=== PATIENT | male | born 1970 | race African-American/Black ===

== ENCOUNTER 2017-09-30 13:07 | Emergency (ER) | payer SELFPAY ==
--- NOTE | 2017-09-30 13:55 | ER Document Report ---
ED GI/ - General Chief Complaint: Testicular Swelling Stated Complaint: GROIN PAIN Time Seen by Provider: 09/30/17 13:51 Notes: The patient is a 47-year-old male, past medical history hypertension, NIDDM, generalized edema, presents with 3 days of foreskin and testicular swelling. Patient takes 20 mg Lasix daily. He denies shortness of breath (despite nursing note), chest pain, fevers, cough, difficulty urinating, dysuria, perineal pain, nausea, vomiting, diarrhea, constipation or hematuria. TRAVEL OUTSIDE OF THE [place] IN LAST 30 DAYS: No - Related Data Allergies/Adverse Reactions: lisinopril [Lisinopril] Allergy (Severe, Verified 02/25/15 15:15) angioedema morphine [Morphine] Allergy (Verified 02/25/15 15:15) terazosin [Terazosin] Allergy (Verified 02/25/15 15:15) acetaminophen [From Percocet] Adverse Reaction (Verified 02/25/15 15:15) Urticaria oxycodone HCl [From Percocet] Adverse Reaction (Verified 02/25/15 15:15) Urticaria Past Medical History - General Information source: Patient - Social History Smoking Status: Current Every Day Smoker Family History: Reviewed & Not Pertinent Patient has suicidal ideation: No Patient has homicidal ideation: No - Past Medical History Cardiac Medical History: Reports: Hx Hypercholesterolemia, Hx Hypertension Pulmonary Medical History: Reports: Hx Bronchitis Denies: Hx Tuberculosis Endocrine Medical History: Reports: Hx Diabetes Mellitus Type 2 Renal/ Medical History: Denies: Hx Peritoneal Dialysis Psychiatric Medical History: Reports: Hx Bipolar Disorder Review of Systems - Review of Systems Notes: REVIEW OF SYSTEMS: CONSTITUTIONAL: -fevers, -chills EENT: -eye pain, -difficulty swallowing, -nasal congestion CARDIOVASCULAR: -chest pain, -syncope. RESPIRATORY: -cough, -SOB GASTROINTESTINAL: -abdominal pain, -nausea, -vomiting, -diarrhea GENITOURINARY: +swelling of penis and testicles, -dysuria, -hematuria MUSCULOSKELETAL: -back pain, -neck pain SKIN: -rash or skin lesions. HEMATOLOGIC: -easy bruising or bleeding. LYMPHATIC: -swollen, enlarged glands. NEUROLOGICAL: -altered mental status or loss of consciousness, -headache, - neurologic symptoms PSYCHIATRIC: -anxiety, -depression. ALL OTHER SYSTEMS REVIEWED AND NEGATIVE. Physical Exam - Vital signs Vitals: Temp Pulse Resp BP Pulse Ox 97.9 F 94 20 140/89 H 95 09/30/17 15:46 09/30/17 15:46 09/30/17 15:46 09/30/17 15:46 09/30/17 15:46 - Notes Notes: PHYSICAL EXAMINATION: GENERAL: In no acute distress. HEAD: Atraumatic, normocephalic. EYES: Pupils equal round and reactive to light, extraocular movements intact, sclera anicteric, conjunctiva are normal. ENT: nares patent, oropharynx clear without exudates. Moist mucous membranes. NECK: Normal range of motion, supple without lymphadenopathy LUNGS: Breath sounds clear to auscultation bilaterally and equal. No wheezes rales or rhonchi. HEART: Regular rate and rhythm without murmurs ABDOMEN: Soft, nontender, normoactive bowel sounds. No guarding, no rebound. No masses appreciated. : Swelling of foreskin and testicles, no crepitus or erythema. No tenderness. EXTREMITIES: Normal range of motion, 2+ pitting edema in B/L legs. No cyanosis. NEUROLOGICAL: Cranial nerves grossly intact. Normal speech, normal gait. Normal sensory and motor exams. PSYCH: Normal mood, normal affect. SKIN: Warm, Dry, normal turgor, no rashes or lesions noted. Course - Re-evaluation Re-evalutation: Patient presents with generalized edema and anasarca, especially in his penis and testicles. Patient is able to ambulate and he is not in respiratory distress or hypoxic to suggest pulmonary edema. There is no erythema, crepitus , perineal/groin tenderness or fever to suggest Avery's gangrene. He takes 20 mg Lasix daily. Will check blood work and help diurese patient. Patient's proBNP is 3000 and potassium is 5.5. Instructed him to double his Lasix and f/u with his PMD. - Vital Signs Vital signs: Temp Pulse Resp BP Pulse Ox 97.9 F 94 20 140/89 H 95 09/30/17 15:46 09/30/17 15:46 09/30/17 15:46 09/30/17 15:46 09/30/17 15:46 - Laboratory Result Diagrams: 09/30/17 14:23 09/30/17 14:23 Laboratory results interpreted by me: 09/30/17 09/30/17 09/30/17 14:23 14:23 14:23 Hgb 10.9 L Hct 35.4 L MCV 64 L MCH 19.8 L MCHC 30.8 L RDW 20.5 H Lymphocytes % 12.7 L Monocytes % 18.0 H Potassium 5.5 H BUN 24 H Creatinine 1.29 H Total Bilirubin 1.6 H Direct Bilirubin 1.1 H AST 69 H NT-Pro-B Natriuret Pep 3990 H Discharge - Discharge Clinical Impression: Anasarca Condition: Stable Disposition: HOME, SELF-CARE Additional Instructions: You may increase her Lasix to 40 mg daily to help with the fluid in your penis and scrotum. Return to the ER if you are unable to urinate, you have difficulty breathing, fever, pain in your groin region or you have any other concerns. Edema, Peripheral You have swelling in your legs. This is called peripheral edema. It can be caused by "leaky capillaries," inflammation, disease of the leg veins, or excess salt and water in your body. Edema may be a sign of heart, kidney, or liver disease. A medical evaluation can determine if there is a serious underlying cause for your edema. Avoid prolonged standing. If you must sit for a long time, occasionally get up and walk around or elevate your legs. Support stockings can be helpful in limiting swelling. Often diuretic or water pills are used to remove excess salt and water from your body. Call the doctor or return if you develop increased swelling, pain, or redness, shortness of breath, chest pain, or any other significant change. Forms: Elevated Blood Pressure Referrals: [facility] [Outside] - Follow up as needed
[2017-09-30 14:50] LABS: ALANINE AMINOTRANSFERASE 44 U/L (21-72); ALBUMIN 3.5 g/dL (3.5-5.0); ALKALINE PHOSPHATASE 113 U/L (38-126); ANION GAP 12 (5-19); ASPARTATE AMINO TRANSFERASE 69 U/L (17-59); BILIRUBIN,DIRECT 1.1 mg/dL (0.0-0.4); BILIRUBIN,TOTAL 1.6 mg/dL (0.2-1.3); BLOOD UREA NITROGEN 24 mg/dL (7-20); CALCIUM 8.9 mg/dL (8.4-10.2); CARBON DIOXIDE 26 mmol/L (22-30); CHLORIDE 103 mmol/L (98-107); GLUCOSE 110 mg/dL (75-110); POTASSIUM 5.5 mmol/L (3.6-5.0); SODIUM 140.7 mmol/L (137-145); TOTAL PROTEIN 8.1 g/dL (6.3-8.2)
[2017-09-30 14:51] LABS: ABSOLUTE BASOPHILS # (AUTO) 0.1 10^3/uL (0.0-0.2); ABSOLUTE EOSINOPHILS # (AUTO) 0.1 10^3/uL (0.0-0.6); ABSOLUTE LYMPHOCYTES (AUTO) 0.7 10^3/uL (0.5-4.7); ABSOLUTE NEUT (AUTO) 3.6 10^3/uL (1.7-8.2); BASOPHILS % (AUTO) 1.1 % (0-2); EOSINOPHILS % (AUTO) 1.5 % (0-6); HEMATOCRIT 35.4 % (37.9-51.0); HEMOGLOBIN 10.9 g/dL (13.5-17.0); LYMPHOCYTES % (AUTO) 12.7 % (13-45); MEAN CORPUSCULAR HEMOGLOBIN 19.8 pg (27.0-33.4); MEAN CORPUSCULAR HGB CONC 30.8 g/dL (32.0-36.0); PLATELET COUNT 366 10^3/uL (150-450); RED BLOOD COUNT 5.53 10^6/uL (4.35-5.55); RED CELL DISTRIBUTION WIDTH 20.5 % (11.5-14.0); SEGMENTED NEUTROPHILS % (AUTO) 66.7 % (42-78); TOTAL CELLS COUNTED % (AUTO) 100 %; WHITE BLOOD COUNT 5.4 10^3/uL (4.0-10.5)
[2017-09-30] MEDS ORDERED: FUROSEMIDE INJ/PF 40 MG/4 ML SDV IV ONE (14:59)
[2017-09-30 15:19] LABS: ANISOCYTOSIS 2+; PLATELET COMMENT ADEQUATE
[2017-09-30 15:20] LABS: OVALOCYTES SLIGHT; POLYCHROMASIA SLIGHT; TARGET CELLS 2+
[2017-09-30 15:21] LABS: MEAN CORPUSCULAR VOLUME 64 fl (80-97)
[2017-09-30 16:02] VITALS: BP 140/89
[2017-10-01 12:36] LABS: PATH REVIEW PATHOLOGIST REVIEWED
== END 2017-09-30 17:08 | disposition home or self-care (01) ==
LOC: ER 13:07
DX: R60.1 Generalized edema (principal); N50.819 Testicular pain, unspecified; E11.9 Type 2 diabetes mellitus without complications; E78.00 Pure hypercholesterolemia, unspecified; I10 Essential (primary) hypertension; F17.200 Nicotine dependence, unspecified, uncomplicated; Z88.6 Allergy status to analgesic agent
CPT/HCPCS: 99284; 96374; 36415; 85025; 80053; 83880; J1940

== ENCOUNTER 2017-10-11 13:35 | Emergency (ER) | payer SELFPAY ==
[2017-10-11] MEDS ORDERED: FUROSEMIDE INJ/PF 40 MG/4 ML SDV IV ONE ×2 (14:23→18:30)
[2017-10-11 14:28] LABS: ALANINE AMINOTRANSFERASE 43 U/L (21-72); ALBUMIN 3.6 g/dL (3.5-5.0); ALKALINE PHOSPHATASE 131 U/L (38-126); ANION GAP 17 (5-19); ASPARTATE AMINO TRANSFERASE 59 U/L (17-59); BILIRUBIN,DIRECT 1.3 mg/dL (0.0-0.4); BILIRUBIN,TOTAL 1.9 mg/dL (0.2-1.3); BLOOD UREA NITROGEN 14 mg/dL (7-20); CARBON DIOXIDE 25 mmol/L (22-30); CHLORIDE 98 mmol/L (98-107); CREATINE KINASE 399 U/L (55-170); GLUCOSE 96 mg/dL (75-110); POTASSIUM 4.7 mmol/L (3.6-5.0); SODIUM 139.7 mmol/L (137-145); TOTAL PROTEIN 7.8 g/dL (6.3-8.2)
--- NOTE | 2017-10-11 14:29 | ER Document Report ---
ED General - General Mode of Arrival: Stretcher Information source: Patient TRAVEL OUTSIDE OF THE [place] IN LAST 30 DAYS: No - HPI Onset: Last week Onset/Duration: Gradual Quality of pain: Achy. denies: No pain, Burning, Cramping, Dull, Fullness, Pressure, Sharp, Stabbing, Throbbing, Other Severity: Moderate Pain Level: 3 Associated symptoms: None, Allergy/hay fever, Body/muscle aches, Chest pain, Chills, Nonproductive cough, Productive cough, Diarrhea, Drooling, Earache, Fever, Headache, Hoarseness, Hurts to breath, Leg swelling, Nausea, Vomiting, Rhinnorhea, Sinus pain/drainage, Shortness of breath, Slow to respond, Sore throat, Sweating, Weakness, Other Exacerbated by: denies: Denies, Supine, Sitting, Standing, Movement, Walking, Coughing, Deep breathing, Food, Other Relieved by: denies: Denies, Supine, Sitting, Standing, Remaining still, Antacids, Food, Other <CHRISTIAN MERCADO - Last Filed: 10/11/17 16:35> <RAMBO LOWRY - Last Filed: 10/11/17 17:48> <TEREAS BRASHER E - Last Filed: 10/12/17 01:01> - General Chief Complaint: Chest Pain Stated Complaint: CHEST PAIN Time Seen by Provider: 10/11/17 14:11 Notes: History of present illness-47 years old male with a history of chronic edema, morbid obesity, presents today with difficulty in breathing and swelling of the whole body including scrotum. It started gradually over the last 2 weeks. States he was not ambulating for 1-1/2 weeks. Denies any chest pain denies any fever chills productive cough. Denies any abdominal pain except having loose stools on and off. Denies any vomiting but had nausea on and off. REVIEW OF SYSTEMS: CONSTITUTIONAL : Denies fever, chills, or sweats. Denies recent illness. EENT: Denies eye, ear, throat, or mouth pain or symptoms. Denies nasal or sinus congestion or discharge. Denies throat, tongue, or mouth swelling or difficulty swallowing. CARDIOVASCULAR: Denies chest pain. Denies palpitations or racing or irregular heart beat. Denies ankle edema. RESPIRATORY: As per history of complain GASTROINTESTINAL: Denies abdominal pain or distention. Denies nausea, vomiting , or diarrhea. Denies blood in vomitus, stools, or per rectum. Denies black, tarry stools. Denies constipation. GENITOURINARY: Denies difficulty urinating, painful urination, burning, frequency, blood in urine, or discharge. MUSCULOSKELETAL: Denies back or neck pain or stiffness. Denies joint pain or swelling. SKIN: Denies rash, lesions or sores. HEMATOLOGIC : Denies easy bruising or bleeding. LYMPHATIC: Denies swollen, enlarged glands. NEUROLOGICAL: Denies confusion or altered mental status. Denies passing out or loss of consciousness. Denies dizziness or lightheadedness. Denies headache. Denies weakness or paralysis or loss of use of either side. Denies problems with gait or speech. Denies sensory loss, numbness, or tingling. Denies seizures. PSYCHIATRIC: Denies anxiety or stress. Denies depression, suicidal ideation, or homicidal ideation. ALL OTHER SYSTEMS REVIEWED AND NEGATIVE. Dictation was performed using [employer] voice recognition software PHYSICAL EXAMINATION: GENERAL: Anasarca HEAD: Atraumatic, normocephalic. EYES: Pupils equal round and reactive to light, extraocular movements intact, sclera anicteric, conjunctiva are normal. ENT: Nares patent, oropharynx clear without exudates. Moist mucous membranes. NECK: Normal range of motion, supple without lymphadenopathy LUNGS: Breath sounds clear to auscultation bilaterally and equal. No wheezes rales or rhonchi. It was very difficult exam could not hear very well. HEART: Regular rate and rhythm without murmurs difficult exam could not hear very clearly. The breath sounds ABDOMEN: Distended with diffuse edema. No guarding, no rebound. No masses appreciated. Musculoskeletal: Bilateral lower leg edema all the way to the thigh NEUROLOGICAL: Cranial nerves grossly intact. Normal speech, normal gait. Normal sensory, motor exams PSYCH: Normal mood, normal affect. SKIN: Erythematous almost throughout the whole body (CHRISTIAN MERCADO) - Related Data Allergies/Adverse Reactions: lisinopril [Lisinopril] Allergy (Severe, Verified 02/25/15 15:15) angioedema morphine [Morphine] Allergy (Verified 02/25/15 15:15) terazosin [Terazosin] Allergy (Verified 02/25/15 15:15) acetaminophen [From Percocet] Adverse Reaction (Verified 02/25/15 15:15) Urticaria oxycodone HCl [From Percocet] Adverse Reaction (Verified 02/25/15 15:15) Urticaria Past Medical History - General Information source: Patient - Social History Smoking Status: Unknown if Ever Smoked Cigarette use (# per day): No Chew tobacco use (# tins/day): No Frequency of alcohol use: Rare Drug Abuse: denies: None, Bath salts, Cocaine, Heroin, Marijuana, Methamphetamine, Prescription drugs, Other Lives with: Alone, Family, Parents, Spouse/Significant other, Friend, Grandparent(s), Guardian, Homeless, Correction, Other Family History: Reviewed & Not Pertinent Patient has suicidal ideation: No Patient has homicidal ideation: No - Past Medical History Cardiac Medical History: Reports: Hx Hypercholesterolemia, Hx Hypertension Pulmonary Medical History: Reports: Hx Bronchitis Denies: Hx Tuberculosis Endocrine Medical History: Reports: Hx Diabetes Mellitus Type 2 Renal/ Medical History: Denies: Hx Peritoneal Dialysis Psychiatric Medical History: Reports: Hx Bipolar Disorder <CHRISTIAN MERCADO - Last Filed: 10/11/17 16:35> Review of Systems - Review of Systems Constitutional: denies: No symptoms reported, See HPI, Chills, Diaphoresis, Fever, Malaise, Weakness, Other, Weight gain, Weight loss, Recent illness EENT: denies: No symptoms reported, See HPI, Eye pain, Eye discharge, Blurred vision, Tearing, Double vision, Ear pain, Ear discharge, Nose pain, Nose congestion, Nose discharge, Sinus pressure, Sinus discharge, Throat pain, Difficulty swallowing, Throat swelling, Mouth pain, Mouth swelling, Dental problem, Vertigo, Other Cardiovascular: See HPI Respiratory: See HPI Gastrointestinal: See HPI Genitourinary: See HPI. denies: No symptoms reported, Burning, Dysuria, Discharge, Frequency, Flank pain, Hematuria, Incontinence, Pain, Urgency, Retention, Other Male Genitourinary: See HPI Skin: See HPI Neurological/Psychological: denies: No symptoms reported, See HPI, Confusion, Dementia, Depression, Hallucinations, Anxiety, Homicidal ideation, Sensory change, Weakness, Gait changes, Loss of power, Paralysis, Seizure, Lost consciousness, Headaches, Speech impairment, Numbness, Suicidal ideation, Tingling, Tremor, Other <CHRISTIAN MERCADO - Last Filed: 10/11/17 16:35> Physical Exam <CHRISTIAN MERCADO - Last Filed: 10/11/17 16:35> <RAMBO LOWRY - Last Filed: 10/11/17 17:48> <TERESA BRASHER - Last Filed: 10/12/17 01:01> - Vital signs Vitals: Resp BP Pulse Ox 17 105/90 H 95 10/11/17 13:47 10/11/17 13:47 10/11/17 13:47 - Notes Notes: Dictated (CHRISTIAN MERCADO) Course - Laboratory Result Diagrams: 10/11/17 13:20 10/11/17 13:20 - Diagnostic Test Radiology reviewed: Reports reviewed - Chest x-ray reported by radiologist as cardiomegaly otherwise no new finding. - EKG Interpretation by Me EKG shows normal: Sinus rhythm, [place] - Normal axis Rate: Normal Rhythm: NSR - At the rate of 46 bpm normal axis no acute ST elevation ST depression T-wave inversion. Poor R waves in anterior leads. <CHRISTIAN MERCADO - Last Filed: 10/11/17 16:35> - Laboratory Result Diagrams: 10/11/17 13:20 10/11/17 13:20 <RAMBO LOWRY - Last Filed: 10/11/17 17:48> - Laboratory Result Diagrams: 10/11/17 13:20 10/11/17 13:20 <TERESA BRASHER - Last Filed: 10/12/17 01:01> - Re-evaluation Re-evalutation: 10/11/17 17:48 Patient signed out to me by . Patient had 2 runs of V. tach. He denies any associated symptoms. He is otherwise stable. Amiodarone 150 mg administered. (RAMBO LOWRY) 10/12/17 01:01 Transport in ED. Patient stable for transport. (TERESA BRASHER) - Vital Signs Vital signs: Temp Pulse Resp BP Pulse Ox 20 145/86 H 99 10/12/17 00:31 10/12/17 00:31 10/12/17 00:31 10/11/17 16:45 Case was discussed with [facility] cardiology as well as the hospitalist currently being admitted (CHRISTIAN MERCADO) - Laboratory Laboratory results interpreted by me: 10/11/17 10/11/17 13:20 13:20 Hgb 10.5 L Hct 33.3 L MCV 63 L MCH 19.8 L MCHC 31.7 L RDW 20.1 H Lymphocytes % 10.1 L Monocytes % 16.8 H Basophils % 2.4 H Total Bilirubin 1.9 H Direct Bilirubin 1.3 H Alkaline Phosphatase 131 H Creatine Kinase 399 H Discharge <CHRISTIAN MERCADO - Last Filed: 10/11/17 16:35> <RAMBO LOWRY E - Last Filed: 10/11/17 17:48> <TERESA BRASHER E - Last Filed: 10/12/17 01:01> - Discharge Clinical Impression: Anasarca, Cardiomegaly, Elevated troponin Condition: Fair Disposition: [facility] Referrals: KENISHA DEGROOT MD [Primary Care Provider] - Follow up as needed
[2017-10-11 14:33] LABS: ABSOLUTE BASOPHILS # (AUTO) 0.1 10^3/uL (0.0-0.2); ABSOLUTE EOSINOPHILS # (AUTO) 0.1 10^3/uL (0.0-0.6); ABSOLUTE LYMPHOCYTES (AUTO) 0.5 10^3/uL (0.5-4.7); ABSOLUTE MONOCYTES (AUTO) 0.8 10^3/uL (0.1-1.4); ABSOLUTE NEUT (AUTO) 3.3 10^3/uL (1.7-8.2); BASOPHILS % (AUTO) 2.4 % (0-2); EOSINOPHILS % (AUTO) 1.6 % (0-6); HEMATOCRIT 33.3 % (37.9-51.0); HEMOGLOBIN 10.5 g/dL (13.5-17.0); LYMPHOCYTES % (AUTO) 10.1 % (13-45); MEAN CORPUSCULAR HEMOGLOBIN 19.8 pg (27.0-33.4); MEAN CORPUSCULAR HGB CONC 31.7 g/dL (32.0-36.0); MEAN CORPUSCULAR VOLUME 63 fl (80-97); MONOCYTES % (AUTO) 16.8 % (3-13); PLATELET COUNT 284 10^3/uL (150-450); RED BLOOD COUNT 5.31 10^6/uL (4.35-5.55); RED CELL DISTRIBUTION WIDTH 20.1 % (11.5-14.0); SEGMENTED NEUTROPHILS % (AUTO) 69.1 % (42-78); TOTAL CELLS COUNTED % (AUTO) 100 %; WHITE BLOOD COUNT 4.8 10^3/uL (4.0-10.5)
--- NOTE | 2017-10-11 14:34 | RADIOLOGY REPORT (SQ) ---
EXAM DESCRIPTION: CHEST SINGLE VIEW COMPLETED DATE/TIME: 10/11/2017 2:26 pm REASON FOR STUDY: chest pain COMPARISON: 02/25/2015 NUMBER OF VIEWS: One view. TECHNIQUE: Single frontal radiographic view of the chest acquired. LIMITATIONS: Body habitus. Portable technique. FINDINGS: LUNGS AND PLEURA: No opacities, masses or pneumothorax. No pleural effusion. MEDIASTINUM AND HILAR STRUCTURES: No masses. Contour normal. HEART AND VASCULAR STRUCTURES: Heart enlarged without failure. Normal vasculature. BONES: No acute findings. HARDWARE: None in the chest. OTHER: No other significant finding. IMPRESSION: Cardiomegaly. No acute findings. TECHNICAL DOCUMENTATION: JOB ID: [id number] [employer]- All Rights Reserved Reading location - IP/workstation name: [email or web address]
[2017-10-11 14:40] LABS: CREATINE KINASE MB 2.08 ng/mL (<4.55)
[2017-10-11 14:52] LABS: BURR CELLS SLIGHT; HYPOCHROMASIA 1+; OVALOCYTES 1+; POIKILOCYTOSIS 2+
[2017-10-11 14:53] LABS: PLATELET COMMENT ADEQUATE; SCHISTOCYTES SLIGHT; TARGET CELLS 1+
[2017-10-11 15:09] LABS: TROPONIN I 0.123 ng/mL
[2017-10-11] MEDS ORDERED: AMIODARONE HCL 150 MG in DEXTROSE 5%-WATER 100 ML IV ONE (17:47)
--- NOTE | 2017-10-11 18:23 | EKG REPORT ---
SEVERITY:- ABNORMAL ECG - SINUS TACHYCARDIA LOW VOLTAGE IN FRONTAL LEADS CONSIDER ANTEROSEPTAL INFARCT BORDERLINE T WAVE ABNORMALITIES : Confirmed by: Fareed Lawrence MD 11-Oct-2017 18:22:20
[2017-10-11] MEDS ORDERED: AMIODARONE HCL INJ 150 MG/3 ML VIAL IV ONE (18:34)
[2017-10-12 00:48] VITALS: BP 145/86
--- NOTE | 2017-10-14 13:00 | EKG REPORT ---
SEVERITY:- ABNORMAL ECG - SINUS RHYTHM LOW VOLTAGE IN FRONTAL LEADS CONSIDER ANTEROSEPTAL INFARCT BORDERLINE T WAVE ABNORMALITIES BORDERLINE PROLONGED QT INTERVAL : Confirmed by: Elva Quan 14-Oct-2017 12:59:16
== END 2017-10-12 01:17 | disposition short-term general hospital (02) ==
LOC: ER 13:35
DX: R60.1 Generalized edema (principal); I51.7 Cardiomegaly; R79.89 Other specified abnormal findings of blood chemistry; R07.9 Chest pain, unspecified; R06.00 Dyspnea, unspecified; E66.01 Morbid (severe) obesity due to excess calories; I10 Essential (primary) hypertension; E78.00 Pure hypercholesterolemia, unspecified; E11.9 Type 2 diabetes mellitus without complications; Z88.6 Allergy status to analgesic agent
CPT/HCPCS: 93005; 99285; 51702; 96374; 96375; 36415; 82553; 82962; 82550; 85025; 80053; 84484; 71045; 93010; 36600; J1940; J0282

== ENCOUNTER → 2018-07-10 | Outpatient (CLI) | payer MEDICAID ==
--- NOTE | 2018-07-10 16:00 | RADIOLOGY REPORT (SQ) ---
EXAM DESCRIPTION: U/S RETROPERITON (RENAL/AORTA) COMPLETED DATE/TIME: 07/10/2018 3:18 pm REASON FOR STUDY: N18.3 CHRONIC KIDNEY DISEASE, STAGE 3 (MODERATE) N18.3 CHRONIC KIDNEY DISEASE, ST AGE 4 (MODERATE) COMPARISON: None. TECHNIQUE: Dynamic and static grayscale images acquired of the kidneys and bladder and recorded on P ACS. Additional selected color Doppler and spectral images recorded. LIMITATIONS: None. FINDINGS: RIGHT KIDNEY: Normal size, 10.3 cm. Normal echogenicity. No solid or suspicious masses. No hydronephrosis. No calcifications. LEFT KIDNEY: Normal size, 10.4 cm. Normal echogenicity. No solid or suspicious masses. No hydrone phrosis. No calcification. BLADDER: Not well filled. OTHER FINDINGS: No other significant finding. IMPRESSION: NORMAL RENAL AND BLADDER ULTRASOUND. TECHNICAL DOCUMENTATION: JOB ID: [id number] [employer]- All Rights Reserved Reading location - IP/workstation name: [email or web address]
== END ==
LOC: RAD 14:44
PROVIDERS: ATTEND Internal Medicine Nephrology
DX: E11.22 Type 2 diabetes mellitus with diabetic chronic kidney disease (principal); I12.9 Hypertensive chronic kidney disease with stage 1 through stage 4 chronic kidney disease, or unspecified chronic kidney disease; N18.3 Chronic kidney disease, stage 3 (moderate)
CPT/HCPCS: 76770

== ENCOUNTER → 2018-10-23 | Outpatient (CLI) | payer MEDICAID ==
[2018-10-23 11:29] LABS: APPEARANCE,URINE CLEAR; BILIRUBIN,URINE NEGATIVE (NEGATIVE); COLOR,URINE YELLOW; GLUCOSE, URINE NEGATIVE (NEGATIVE); KETONES,URINE NEGATIVE (NEGATIVE); LEUKOCYTE ESTERASE,URINE NEGATIVE (NEGATIVE); NITRITE,URINE NEGATIVE (NEGATIVE); PROTEIN,URINE NEGATIVE (NEGATIVE); URINE SPECIFIC GRAVITY 1.008; UROBILINOGEN,URINE NEGATIVE mg/dL (<2.0)
[2018-10-23 11:45] LABS: CHLORIDE 103 mmol/L (98-107); POTASSIUM 3.8 mmol/L (3.6-5.0); SODIUM 144.8 mmol/L (137-145)
[2018-10-23 11:58] LABS: ALBUMIN 4.1 g/dL (3.5-5.0); ANION GAP 16 (5-19); BLOOD UREA NITROGEN 21 mg/dL (7-20); CALCIUM 9.5 mg/dL (8.4-10.2); CARBON DIOXIDE 26 mmol/L (22-30); GLUCOSE 102 mg/dL (75-110)
[2018-10-24 12:37] LABS: CREATININE URINE 40.2 mg/dL (Not Estab.); MICROALBUMIN URINE 4.5 ug/mL (Not Estab.)
== END ==
LOC: OD 10:51
PROVIDERS: ATTEND Internal Medicine Nephrology
DX: I12.9 Hypertensive chronic kidney disease with stage 1 through stage 4 chronic kidney disease, or unspecified chronic kidney disease (principal); N18.3 Chronic kidney disease, stage 3 (moderate); E11.9 Type 2 diabetes mellitus without complications
CPT/HCPCS: 36415; 80069; 81001; 82043; 82306; 82570; 83970

== ENCOUNTER → 2018-11-20 | Outpatient (CLI) | payer MEDICAID ==
[2018-11-20 13:09] LABS: APPEARANCE,URINE SLIGHTLY-CLOUDY; BILIRUBIN,URINE NEGATIVE (NEGATIVE); COLOR,URINE YELLOW; GLUCOSE, URINE NEGATIVE (NEGATIVE); KETONES,URINE NEGATIVE (NEGATIVE); LEUKOCYTE ESTERASE,URINE NEGATIVE (NEGATIVE); NITRITE,URINE NEGATIVE (NEGATIVE); PROTEIN,URINE NEGATIVE (NEGATIVE); URINE SPECIFIC GRAVITY 1.009; UROBILINOGEN,URINE NEGATIVE mg/dL (<2.0)
[2018-11-20 13:22] LABS: ALBUMIN 4.2 g/dL (3.5-5.0); ANION GAP 11 (5-19); BLOOD UREA NITROGEN 19 mg/dL (7-20); CALCIUM 9.2 mg/dL (8.4-10.2); CARBON DIOXIDE 31 mmol/L (22-30); CHLORIDE 102 mmol/L (98-107); GLUCOSE 96 mg/dL (75-110); PHOSPHORUS 3.8 mg/dL (2.5-4.5); SODIUM 144.3 mmol/L (137-145)
[2018-11-21 12:38] LABS: CREATININE URINE 71.9 mg/dL (Not Estab.); MICROALBUMIN URINE 10.3 ug/mL (Not Estab.)
== END ==
LOC: OD 12:03
PROVIDERS: ATTEND Internal Medicine Nephrology
DX: E11.22 Type 2 diabetes mellitus with diabetic chronic kidney disease (principal); I12.9 Hypertensive chronic kidney disease with stage 1 through stage 4 chronic kidney disease, or unspecified chronic kidney disease; N18.3 Chronic kidney disease, stage 3 (moderate)
CPT/HCPCS: 36415; 80069; 81001; 82043; 82306; 82570; 83970

== ENCOUNTER → 2019-05-12 | Outpatient (CLI) | payer MEDICAID ==
[2019-05-12 18:12] LABS: ANION GAP 18 (5-19); BLOOD UREA NITROGEN 33 mg/dL (7-20); CARBON DIOXIDE 25 mmol/L (22-30); CHLORIDE 97 mmol/L (98-107); GLUCOSE 361 mg/dL (75-110); POTASSIUM 4.3 mmol/L (3.6-5.0)
== END ==
LOC: OD 16:36
PROVIDERS: ATTEND Internal Medicine Nephrology
DX: I12.9 Hypertensive chronic kidney disease with stage 1 through stage 4 chronic kidney disease, or unspecified chronic kidney disease (principal); N18.3 Chronic kidney disease, stage 3 (moderate); N25.81 Secondary hyperparathyroidism of renal origin
CPT/HCPCS: 36415; 80048; 83970

== ENCOUNTER → 2020-05-31 | Outpatient (CLI) | payer MEDICAID ==
--- NOTE | 2020-06-01 11:30 | RADIOLOGY REPORT (SQ) ---
EXAM DESCRIPTION: ARTERIAL LOWER EXTREM BILAT IMAGES COMPLETED DATE/TIME: 05/31/2020 5:30 pm REASON FOR STUDY: LT CALF ULCER L97.222 NON-PRESSURE CHRONIC ULCER OF LEFT CALF W FAT LAYER COMPARISON: Arterial Doppler from 07/20/2015. TECHNIQUE: Dynamic and static sparks scale and color images acquired of the lower extremity arteries. Additional selected spectral images recorded. LIMITATIONS: The focal exam due to patient's body habitus. Unable to obtain ABIs due to the presenc e of an ulcer and inability to pressure cuff. FINDINGS: RIGHT LEG: FEMORAL ARTERIES: The common femoral, proximal profunda femoris, and proximal to mid superficial femo ral arteries are patent with triphasic spectral waveforms and no velocity elevation to indicate the p resence the stenosis ; the distal SFA was not visualized. The color Doppler evaluation of the vessel s is normal. There is no aneurysm. POPLITEAL ARTERY: The popliteal artery is patent with triphasic spectral waveforms and no velocity e levation to indicate the presence of a stenosis. The color Doppler evaluation of the vessel is normal . There is no aneurysm. PATENT TIBIOPERONEAL TRUNK AND 3 VESSEL RUNOFF: The posterior tibial, anterior tibial and dorsalis pe dis arteries are patent with biphasic spectral waveforms and no velocity elevation to indicate the pr esence of a stenosis. The color Doppler evaluation of the vessels is normal. OTHER: No other findings. LEFT LEG: FEMORAL ARTERIES: The common femoral, proximal profunda femoris, and proximal to mid superficial femo ral arteries are patent with multiphasic spectral waveforms and no velocity elevation to indicate the presence the stenosis. The color Doppler evaluation of the vessels is normal. There is no aneurysm . POPLITEAL ARTERY: The popliteal artery is patent with biphasic spectral waveforms and no velocity toro vation to indicate the presence of a stenosis. The color Doppler evaluation of the vessel is normal. There is no aneurysm. PATENT TIBIOPERONEAL TRUNK AND 3 VESSEL RUNOFF: The posterior tibial, anterior tibial and dorsalis pe dis arteries are patent with biphasic spectral waveforms and no velocity elevation to indicate the pr esence of a stenosis. The color Doppler evaluation of the vessels is normal. OTHER: No other findings. IMPRESSION: NO HEMODYNAMICALLY SIGNIFICANT STENOSIS. TECHNICAL DOCUMENTATION: JOB ID: [id number] 2010 [email or web address]- All Rights Reserved Reading location - IP/workstation name: [email or web address]
== END ==
LOC: RAD 15:00
PROVIDERS: ATTEND Nurse Practitioner Family
DX: L97.222 Non-pressure chronic ulcer of left calf with fat layer exposed (principal)
CPT/HCPCS: 93925